=== PATIENT | female | born 1990 | race Two or more races ===

== ENCOUNTER 2024-10-04 14:17 | Outpatient (CLI) | payer OTHER | END 2024-10-04 14:22 | disposition home or self-care (01) | LOC: PRENATAL 14:17 | PROVIDERS: ATTEND Obstetrics & Gynecology Maternal & Fetal Medicine | DX: O44.00 Complete placenta previa NOS or without hemorrhage, unspecified trimester (principal); O09.529 Supervision of elderly multigravida, unspecified trimester; Z3A.22 22 weeks gestation of pregnancy ==